=== PATIENT | female | born 1935 | race Hispanic/Latino ===

== ENCOUNTER 2017-09-10 08:31 | Emergency (ER) | payer MEDICARE | END 2017-09-10 10:21 | disposition home or self-care (01) | LOC: EDH 08:31 | DX: S13.4XXA Sprain of ligaments of cervical spine, initial encounter (principal); S20.219A Contusion of unspecified front wall of thorax, initial encounter; S09.8XXA Other specified injuries of head, initial encounter; E78.5 Hyperlipidemia, unspecified; I10 Essential (primary) hypertension; W01.0XXA Fall on same level from slipping, tripping and stumbling without subsequent striking against object, initial encounter; Y93.01 Activity, walking, marching and hiking; Y92.89 Other specified places as the place of occurrence of the external cause; Y99.8 Other external cause status | CPT/HCPCS: 70450; 71250; 72125; 93005 ==

== ENCOUNTER → 2017-11-27 | Outpatient (CLI) | payer MEDICARE | END | disposition home or self-care (01) | LOC: LAB 08:53 | PROVIDERS: ATTEND Urology | DX: N28.1 Cyst of kidney, acquired (principal) | CPT/HCPCS: 36415; 82565; 84520 ==

== ENCOUNTER → 2017-11-29 | Outpatient (CLI) | payer MEDICARE ==
[~2017-11-29] MED LIST: IOPAMIDOL-370 75 ML VIAL IV ONE
== END | disposition home or self-care (01) ==
LOC: DAH 08:54
PROVIDERS: ATTEND Urology
DX: D35.02 Benign neoplasm of left adrenal gland (principal); N28.1 Cyst of kidney, acquired
CPT/HCPCS: 74178; Q9967

== ENCOUNTER 2018-09-10 09:26 | Emergency (ER) | payer MEDICARE ==
[2018-09-10 09:56] LABS: EOSINOPHILS % (AUTO) 1.1 % (0.0-8.0); HEMATOCRIT 34.2 % (36-48); MEAN CORPUSCULAR HEMOGLOBIN 29.7 pg (27.0-33.0); MEAN CORPUSCULAR VOLUME 87.3 fL (79-99); MONOCYTES % (AUTO) 10.2 % (3.0-13.0); NEUTROPHILS % (AUTO) 64.7 % (40.0-77.0); PLATELET COUNT (AUTO) 313 K/uL (130-400); RED BLOOD CELL COUNT(AUTO) 3.92 MIL/uL (4.00-5.50); RED CELL DISTRIBUTION WIDTH 14.2 % (11.0-15.5); WHITE BLOOD COUNT (AUTO) 4.2 K/uL (4.8-10.8)
[2018-09-10] MEDS ORDERED: IPRATROPIUM/ALBUTEROL SULFATE 3 ML SOLUTION IH ONE (11:52)
[2018-09-10 12:14] LABS: APPEARANCE,URINE Clear (CLEAR); BILIRUBIN,URINE Negative (NEGATIVE); COLOR,URINE Yellow (YELLOW); GLUCOSE, URINE (UA) Negative (NEGATIVE); KETONES,URINE Negative (NEGATIVE); LEUKOCYTE ESTERASE ,URINE Moderate (NEGATIVE); NITRATE,URINE Negative (NEGATIVE); OCCULT BLOOD,URINE Negative (NEGATIVE); PH,URINE 6.5 (5.0-8.0); PROTEIN,URINE Negative (NEGATIVE); UROBILINOGEN,URINE 0.2 mg/dL (0.2-1.0)
[2018-09-10 12:25] LABS: BACTERIA,URINE Rare /HPF (None Seen); RBC,URINE None Seen /HPF (0-1); SQUAMOUS EPITHELIAL CELL,UR Rare /HPF (0-2); WBC,URINE 0-1 /HPF (0-1)
[2018-09-10 12:58] LABS: ALBUMIN 3.2 g/dL (3.5-5.0); BILIRUBIN,TOTAL 0.3 mg/dL (0.2-1.0); CREATININE 0.9 mg/dL (0.5-1.5); POTASSIUM 4.3 mmol/L (3.5-5.1); TOTAL PROTEIN, SERUM 6.5 g/dL (6.0-8.3)
== END 2018-09-10 13:32 | disposition home or self-care (01) ==
LOC: EDH 09:26
DX: K29.70 Gastritis, unspecified, without bleeding (principal); R74.8 Abnormal levels of other serum enzymes; I10 Essential (primary) hypertension; E78.5 Hyperlipidemia, unspecified; Z90.49 Acquired absence of other specified parts of digestive tract
CPT/HCPCS: 36415; 80053; 81001; 82150; 83690; 85025; 96360; 96361

== ENCOUNTER → 2018-09-16 | Outpatient (CLI) | payer MEDICARE ==
[~2018-09-16] MED LIST changes: +IOHEXOL 350 MG/ML 100ML INFUS..BTL IV ONE; -IOPAMIDOL-370 75 ML VIAL IV ONE
== END | disposition home or self-care (01) ==
LOC: RAH 14:34
PROVIDERS: ATTEND Urology
DX: N28.1 Cyst of kidney, acquired (principal); Z90.49 Acquired absence of other specified parts of digestive tract
CPT/HCPCS: 74178; Q9967